=== PATIENT | male | born 1990 | race Caucasian/White ===

== ENCOUNTER 2018-03-26 18:40 | Emergency (ER) | payer OTHER ==
[~2018-03-26] VITALS: Ht 177.8 cm; Wt 95.3 kg
[~2018-03-26 18:40] MED LIST: ACET-8386 PO; CLIN300C2 PO
[2018-03-26 19:07] VITALS: BP 134/90
--- NOTE | 2018-03-26 19:11 | NUR ---
TO LOBBY A/W BED, NICKIE XAVIER NOTED
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
--- NOTE | 2018-03-26 22:16 | NUR ---
Dr. Noel evaluating patient.
--- NOTE | 2018-03-26 23:46 | NUR ---
DISCHARGE PENDING, WAITING FOR DISCHARGE INSTRUCTIONS.
[2018-03-27 00:04] VITALS: BP 129/84
== END 2018-03-27 00:04 | disposition home or self-care (01) ==
LOC: MED 18:40
DX: R20.2 Paresthesia of skin (principal); Z71.6 Tobacco abuse counseling; Z79.899 Other long term (current) drug therapy
CPT/HCPCS: 99283

== ENCOUNTER 2018-06-20 22:51 | Emergency (ER) | payer OTHER ==
[~2018-06-20] VITALS: Ht 177.8 cm; Wt 74.8 kg
[2018-06-20 23:12] VITALS: BP 146/84
[2018-06-21 00:16] VITALS: BP 146/84
== END 2018-06-21 00:16 | disposition home or self-care (01) ==
LOC: MED 22:51
DX: S50.861A Insect bite (nonvenomous) of right forearm, initial encounter (principal); Z79.899 Other long term (current) drug therapy; W57.XXXA Bitten or stung by nonvenomous insect and other nonvenomous arthropods, initial encounter; Y93.89 Activity, other specified; Y92.89 Other specified places as the place of occurrence of the external cause; Y99.8 Other external cause status
CPT/HCPCS: 73590; 99283

== ENCOUNTER 2018-10-20 17:03 | Emergency (ER) | payer OTHER ==
[~2018-10-20] VITALS: Ht 177.8 cm; Wt 88.5 kg
[2018-10-20 17:15] VITALS: BP 165/91
--- NOTE | 2018-10-20 17:15 | NUR ---
PATIENT AMBULATED TO ER BED 6.
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
[2018-10-20 18:04] LABS: ANION GAP 11.6 (8-16); CARBON DIOXIDE 29.1 mmol/L (21-32); POTASSIUM 3.7 mmol/L (3.5-5.1)
[2018-10-20 18:07] LABS: BARBITURATE, URINE NEG. ng/ml (NEG <=200); BENZODIAZEPINE, URINE NEG. ng/mL (NEG <=200); CANNABINOID, URINE POS. ng/mL (NEG <=50); COCAINE, URINE NEG. ng/mL (NEG <=300); OPIATE, URINE NEG. ng/mL (NEG <=2000); PHENCYCLIDINE SCREEN,URINE NEG. ng/mL (NEG <=25)
[2018-10-20 18:11] LABS: ALBUMIN 4.3 g/dL (3.4-5.0); TOTAL BILIRUBIN 1.1 mg/dL (0.0-1.0)
[2018-10-20 18:25] VITALS: BP 165/91
--- NOTE | 2018-10-20 18:26 | NUR ---
Patient discharged with v/s stable. Written and verbal after care instructions given and explained. Patient verbalized understanding. Ambulatory with steady gait. All questions addressed prior to discharge. Advised to follow up with PMD.
== END 2018-10-20 18:26 | disposition home or self-care (01) ==
LOC: MED 17:03
DX: F15.10 Other stimulant abuse, uncomplicated (principal); M79.605 Pain in left leg; Z79.891 Long term (current) use of opiate analgesic; Z79.2 Long term (current) use of antibiotics
CPT/HCPCS: 36415; 80053; 80305; 99283

== ENCOUNTER 2020-11-23 00:15 | Emergency (ER) | payer OTHER ==
[~2020-11-23] VITALS: Ht 177.8 cm; Wt 108.4 kg
[2020-11-23 00:17] VITALS: BP 142/100
--- NOTE | 2020-11-23 00:20 | NUR ---
TO LOBBY A/W BED VIA W/C
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
--- NOTE | 2020-11-23 00:50 | NUR ---
INFORMED CONSENT FOR TDAP WAS SIGNED AND ACKNOWLEDGED BY PT
[2020-11-23 01:28] VITALS: BP 142/100
--- NOTE | 2020-11-23 01:30 | NUR ---
Patient discharged with v/s stable. Written and verbal after care instructions given and explained. Patient verbalized understanding. Wheel Chair Assisted to car. All questions addressed prior to discharge. Advised to follow up with PMD.
== END 2020-11-23 01:30 | disposition home or self-care (01) ==
LOC: MED 00:15
DX: S71.111A Laceration without foreign body, right thigh, initial encounter (principal); Z79.899 Other long term (current) drug therapy; W45.8XXA Other foreign body or object entering through skin, initial encounter; Y93.89 Activity, other specified; Y92.89 Other specified places as the place of occurrence of the external cause; Y99.8 Other external cause status
CPT/HCPCS: 90471; 90715; 99283

== ENCOUNTER 2020-12-09 22:31 | Emergency (ER) | payer OTHER ==
[~2020-12-09] VITALS: Ht 177.8 cm; Wt 104.3 kg
[2020-12-09 22:47] VITALS: BP 125/85
--- NOTE | 2020-12-09 22:47 | NUR ---
TO BED VIA WHEELCHAIR
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
--- NOTE | 2020-12-09 23:53 | NUR ---
Dr. Hartmann examining patient.
--- NOTE | 2020-12-10 00:54 | NUR ---
US AT BEDSIDE
--- NOTE | 2020-12-10 03:55 | NUR ---
PATIENT PROVIDED WITH CRUTCHES. TEACHING PROVIDED BY DARIELA GANNON. ALL QUESTIONS ANSWERED. PATIENT VERBALIZED UNDERSTANDING AND PROVIDED SUCCESSFUL TEACH BACK DEMONSTRATION.
--- NOTE | 2020-12-10 03:56 | NUR ---
Patient discharged with v/s stable. Written and verbal after care instructions given and explained. Patient verbalized understanding. Ambulatory with steady gait/ WITH CRUTCH ASSIST. All questions addressed prior to discharge. Advised to follow up with PMD.
== END 2020-12-10 03:56 | disposition home or self-care (01) ==
LOC: MED 22:31
DX: S71.111D Laceration without foreign body, right thigh, subsequent encounter (principal); X58.XXXD Exposure to other specified factors, subsequent encounter
CPT/HCPCS: 93971; 99284